=== PATIENT | female | born 1965 | race Caucasian/White ===

== ENCOUNTER 2016-12-01 22:00 | Emergency (ER) | payer MEDICARE, MEDICAID ==
--- NOTE | 2016-12-01 22:47 | EDM.PDOC ---
ED HPI GENERAL MEDICAL PROBLEM - General Chief Complaint: Eye Problems Stated Complaint: LEFT EYE PAIN Time Seen by Provider: 12/01/16 22:00 - History of Present Illness INITIAL COMMENTS - FREE TEXT/NARRATIVE: 51-year-old female presents emergency room with some left eye irritation. Patient denies any trauma other than she may have scratched her eye while wiping it. This morning she noticed increased discharge from her eye. The discharge is mostly watery. She denies any eye pain no significant change in vision. She's had a runny nose for the last several days. ED ROS GENERAL - Review of Systems Review Of Systems: See Below Constitutional: Reports: No Symptoms HEENT: Reports: Glasses, Rhinitis (She has had a runny nose). Denies: Dental Pain, Ear Pain, Sinus Problem Respiratory: Reports: No Symptoms Cardiovascular: Reports: No Symptoms GI/Abdominal: Reports: No Symptoms ED EXAM GENERAL W FULL EYE - Physical Exam Exam: See Below Exam Limited By: No Limitations General Appearance: Alert, No Apparent Distress Eye Exam: Bilateral Eye: Other (Palpation of the globes is nontender) Visual Acuity (R) 20/: 40 Visual Acuity (L) 20/: 40 With Correction: Yes IOP Measure with (Equipment): Other (Technical difficulties with the equipment) Eyelids: Bilateral: Other (Small amount of debris noted on the left eyelashes but this is very subtle) Conjunctiva & Sclera: Bilateral: Normal Appearance Cornea Exam: Bilateral: Normal Appearance Extraocular Movements: Bilateral: Intact Pupils: Normal Accommodation Anterior Chamber: Bilateral: Normal Appearance Posterior Chamber: Bilateral: Normal Funduscopic Ears: Normal External Exam, Normal Canal, Hearing Grossly Normal, Normal TMs Nose: Normal Inspection, Normal Mucosa, No Blood Throat/Mouth: Normal Inspection, Normal Lips, Normal Teeth, Normal Gums, Normal Oropharynx, Normal Voice, No Airway Compromise Head: Atraumatic, Normocephalic Neck: Normal Inspection, Supple, Non-Tender, Full Range of Motion Respiratory/Chest: No Respiratory Distress, Lungs Clear, Normal Breath Sounds Cardiovascular: Regular Rate, Rhythm, No Edema, No Murmur Course - Re-Assessments/Exams Free Text/Narrative Re-Assessment/Exam: 12/02/16 01:12 Her exam is essentially unremarkable for seen do not reveal any uptake no corneal abrasions or lacerations no foreign bodies identified no conjunctival reaction injection or inflammation. Patient be treated with warm compresses and using gentle shampoo techniques to keep her eyes clean. The patient agrees to follow-up with her eye doctor tomorrow for recheck. Departure - Departure Time of Disposition: 21:40 Disposition: Home, Self-Care 01 Clinical Impression: Blepharitis of eyelid of left eye - Discharge Information Referrals: PCP,Unobtain [Primary Care Provider] - Forms: ED Department Discharge Additional Instructions: Patient was given and written discharge instructions she will follow-up with her eye doctor in the morning
== END 2016-12-01 23:48 | disposition home or self-care (01) ==
LOC: JD.ED 22:00
DX: H01.006 Unspecified blepharitis left eye, unspecified eyelid (principal)
CPT/HCPCS: 99282; 99283

== ENCOUNTER → 2018-07-07 | Day surgery (SDC) | payer MEDICARE, MEDICAID ==
[~2018-07-07] MED LIST: Lactated Ringers 1,000 ML IV SCH; Lidocaine 1%/Sod Bicarbonate in NS 8.4% 1 ML Syringe IDERM PRN; Propofol 200 MG/20 ML SDV ONE; Sodium Chloride 0.9% 10 ML Syringe FLUSH PRN
== END ==
LOC: JD.SDS 08:14
PROVIDERS: ATTEND Surgery
DX: Z12.11 Encounter for screening for malignant neoplasm of colon (principal); E03.9 Hypothyroidism, unspecified; M19.90 Unspecified osteoarthritis, unspecified site; Z88.6 Allergy status to analgesic agent; Z53.8 Procedure and treatment not carried out for other reasons; Z87.891 Personal history of nicotine dependence
CPT/HCPCS: J2704

== ENCOUNTER 2018-10-26 08:58 | Day surgery (SDC) | payer MEDICARE, MEDICAID ==
[~2018-10-26 08:58] MED LIST changes: +Lidocaine 1% 6 ML ONE; +fentaNYL 100 MCG/2 ML SDV ONE
--- NOTE | 2018-10-26 09:44 | PCM.PREANE ---
Preanesthetic Assessment - Procedure Proposed Procedure: colonoscopy - Anesthesia/Transfusion/Family Hx Anesthesia History: Prior Anesthesia Without Reaction Family History of Anesthesia Reaction: No Transfusion History: No Prior Transfusion(s) - Review of Systems General: No Symptoms, Chills (1 week) Pulmonary: No Symptoms Cardiovascular: No Symptoms Gastrointestinal: Abdominal Pain (once in a while- crampy) Neurological: Other (downs) Other: Reports: Thyroid Problems, Depression - Physical Assessment NPO Status Date: 10/25/18 NPO Status Time: 23:00 Vital Signs: 98% 17 98.4 75 139/78 Height: 4 ft 9 in Weight: 77 kg ASA Class: 2 Mental Status: Alert & Oriented x3 (downs) Airway Class: Mallampati = 2 Dentition: Reports: Missing Tooth/Teeth Thyro-Mental Finger Breadths: 3 Mouth Opening Finger Breadths: 3 ROM/Head Extension: Full Lungs: Clear to Auscultation, Normal Respiratory Effort Cardiovascular: Regular Rate, Regular Rhythm, Murmurs - Allergies Allergies/Adverse Reactions: Allergies Allergy/AdvReac Type Severity Reaction Status Date / Time celecoxib [From Celebrex] Allergy Other Verified 10/25/18 12:51 - Blood Blood Available: No - Acknowledgements Anesthesia Type Planned: MAC Pt an Appropriate Candidate for the Planned Anesthesia: Yes Alternatives and Risks of Anesthesia Discussed w Pt/Guardian: Yes Pt/Guardian Understands and Agrees with Anesthesia Plan: Yes PreAnesthesia Questionnaire HEENT History: Reports: Allergic Rhinitis, Cataract, Hard of Hearing, Sinusitis , Other (See Below) Other HEENT History: STREP PHARYNGITIS, DENTAL ABCESS, WEARS GLASSES Cardiovascular History: Reports: None Respiratory History: Reports: Sleep Apnea (cpap) Gastrointestinal History: Reports: GERD Genitourinary History: Reports: Other (See Below) Other Genitourinary History: URINARY SYMPTOMS CONTRACT IMPLEMENTATION ANALYST History: Reports: None Musculoskeletal History: Reports: Arthritis Neurological History: Reports: Other (See Below) Other Neuro History: DIZZINESS, HYPERSOMNIA Psychiatric History: Reports: Developmental Delay Endocrine/Metabolic History: Reports: Hypothyroidism, Obesity/BMI 30+ Hematologic History: Reports: None Immunologic History: Reports: None Oncologic (Cancer) History: Reports: None Dermatologic History: Reports: Cellulitis, Eczema - Past Surgical History Head Surgeries/Procedures: Reports: None HEENT Surgical History: Reports: Cataract Surgery Cardiovascular Surgical History: Reports: None Respiratory Surgical History: Reports: None GI Surgical History: Reports: Appendectomy Female Surgical History: Reports: None Male Surgical History: Reports: None Endocrine Surgical History: Reports: None Neurological Surgical History: Reports: None Musculoskeletal Surgical History: Reports: Carpal Tunnel Oncologic Surgical History: Reports: None Dermatological Surgical History: Reports: None - SUBSTANCE USE Smoking Status *Q: Former Smoker Tobacco Use Within Last Twelve Months: No Second Hand Smoke Exposure: No Days Per Week of Alcohol Use: 1 (seldom) Recreational Drug Use History: No - HOME MEDS Home Medications: Home Meds Acetaminophen [Tylenol Arthritis] 650 mg PO DAILY 07/06/18 [History] Ascorbate Calcium [Vitamin C] 500 mg PO DAILY 07/06/18 [History] Ca Carbonate/Vitamin D3/Vit K [Calcium + D Soft Chewable Tab] 1 tab PO DAILY [History] Ethinyl Estradiol/Drospirenone [Ocella 3 MG-0.03 MG] 1 tab PO DAILY 07/06/18 [ History] Fluticasone Propionate [Flonase] 1 dose NASBOTH DAILY 07/06/18 [History] Levothyroxine 125 mcg PO DAILY 07/06/18 [History] Nabumetone 750 mg PO BID 07/06/18 [History] Omeprazole Magnesium [Prilosec Otc] 20 mg PO DAILY 07/06/18 [History] Pyridoxine HCl (Vitamin B6) [Vitamin B-6] 50 mg PO DAILY 07/06/18 [History] Sertraline HCl [Zoloft] 100 mg PO DAILY 07/06/18 [History] Triamcinolone Acetonide [Triamcinolone Acetonide 0.1% Crm] 1 dose TOP BID [History] - CURRENT (IN HOUSE) MEDS Current Meds: Current Medications Lactated Ringer's (Ringers, Lactated) 1,000 mls @ 125 mls/hr IV ASDIRECTED CARMINE Stop: 10/26/18 23:00 Lidocaine/Sodium Bicarbonate (Buffered Lidocaine 1% In Ns 8.4%) 0.25 ml IDERM ONETIME PRN PRN Reason: Prior to IV Start Stop: 10/26/18 18:00 Sodium Chloride (Saline Flush) 10 ml FLUSH ASDIRECTED PRN PRN Reason: Keep Vein Open Stop: 10/26/18 18:00 Discontinued Medications Fentanyl (Sublimaze) Confirm Administered Dose 100 mcg .ROUTE .STK-MED ONE Stop: 10/26/18 07:24 Lidocaine HCl (Xylocaine-Mpf 1%) Confirm Administered Dose 6 mls @ as directed .ROUTE .STK-MED ONE Stop: 10/26/18 07:24 Propofol (Diprivan 20 Ml) Confirm Administered Dose 200 mg .ROUTE .STK-MED ONE Stop: 10/26/18 07:24
[2018-10-26] MEDS ORDERED: Lactated Ringers 1,000 ML ONE (11:04)
--- NOTE | 2018-10-26 11:39 | PCM48HPAN ---
Post Anesthesia Note - EVALUATION WITHIN 48HRS OF ANESTHETIC Vital Signs in Normal Range: Yes Patient Participated in Evaluation: Yes Respiratory Function Stable: Yes Airway Patent: Yes Cardiovascular Function Stable: Yes Hydration Status Stable: Yes Pain Control Satisfactory: Yes Nausea and Vomiting Control Satisfactory: Yes Mental Status Recovered: Yes Vital Signs: Last Vital Signs Temp 36.5 C 10/26/18 11:30 Pulse 71 10/26/18 11:30 Resp 12 10/26/18 11:30 BP 89/73 L 10/26/18 11:30 Pulse Ox 95 10/26/18 11:30
--- NOTE | 2018-10-26 11:59 | OR ---
DATE OF OPERATION: 10/26/2018 SURGEON: Steve Lazaro MD PREOPERATIVE DIAGNOSIS: Colorectal cancer screening. POSTOPERATIVE DIAGNOSIS: Colorectal cancer screening. OPERATION PERFORMED: Screening colonoscopy. ANESTHESIA: MAC. FINDINGS: She had a normal colonoscopy and an excellent bowel prep. No polyps. No diverticulosis. PATHOLOGY: None. ESTIMATED BLOOD LOSS: None. DISPOSITION: Stable at the end of the procedure. INDICATION: The patient is a 52-year-old female referred for colorectal cancer screening. She was offered a screening colonoscopy per the standard of care. She was fully informed of the major risks, benefits, and alternatives. The risks include, but are not limited to perforation of the colon, bleeding, the risks of anesthesia, and the possibility of further surgery. She gave informed consent of what was done. DESCRIPTION OF PROCEDURE: The patient was brought to the gastro suite and placed in the left lateral decubitus position. She was given monitored anesthesia. A digital rectal exam was performed. This was unremarkable. With copious lubrication, I introduced the colonoscope into the rectum. I advanced the scope keeping the lumen in view at all times. I reached the cecum and documented the cecum photographically. I slowly investigated the mucosa of the colon from the cecum back to the anus in an exam lasting 6 minutes. A thorough careful examination failed to demonstrate polyps. She had no diverticulosis. She had an excellent bowel prep. At the end of the procedure, the scope was withdrawn. Air was evacuated on the way up. PLAN: She will need another colonoscopy in 10 years in 2028. MMECHO /[id number]
== END 2018-10-26 12:15 | disposition home or self-care (01) ==
LOC: JD.SDS 08:58
PROVIDERS: ATTEND Surgery
DX: Z12.11 Encounter for screening for malignant neoplasm of colon (principal); K21.9 Gastro-esophageal reflux disease without esophagitis; E03.9 Hypothyroidism, unspecified; F32.9 Major depressive disorder, single episode, unspecified; E66.9 Obesity, unspecified; G47.33 Obstructive sleep apnea (adult) (pediatric); M19.90 Unspecified osteoarthritis, unspecified site; Z88.8 Allergy status to other drugs, medicaments and biological substances; Z79.899 Other long term (current) drug therapy; Z87.891 Personal history of nicotine dependence; Z99.89 Dependence on other enabling machines and devices; Z68.37 Body mass index [BMI] 37.0-37.9, adult
CPT/HCPCS: 45378; 93005; J2001; J2704; J3010; J7120; 00812

== ENCOUNTER 2021-09-09 07:30 | Inpatient (IN) | payer MEDICARE, MEDICAID ==
[~2021-09-09 07:30] MED LIST changes: -Lidocaine 1% 6 ML ONE; -Propofol 200 MG/20 ML SDV ONE; -fentaNYL 100 MCG/2 ML SDV ONE
[2021-09-09] MEDS ORDERED: Ondansetron 4 MG/2 ML SDV ONE (07:47)
[2021-09-09] MEDS ORDERED: ceFAZolin 2 GM Vial ONE (07:47)
[2021-09-09] MEDS ORDERED: Dexamethasone 4 MG/ML 5 ML MDV ONE (07:47)
[2021-09-09] MEDS ORDERED: Rocuronium 50 MG/5 ML Vial ONE (07:47)
[2021-09-09] MEDS ORDERED: Propofol 200 MG/20 ML SDV ONE (07:47)
[2021-09-09] MEDS ORDERED: Lidocaine 1% 4 ML ONE (07:47)
[2021-09-09] MEDS ORDERED: fentaNYL 100 MCG/2 ML SDV ONE ×2 (07:47→09:04)
[2021-09-09] MEDS ORDERED: Midazolam 1 MG/ML 2 ML SDV ONE (08:10)
[2021-09-09] MEDS ORDERED: EPINEPHrine 1 MG/ML SDV ONE (08:12)
[2021-09-09] MEDS ORDERED: Ropivacaine 0.5% 5 MG/ML 30 ML SDV ONE (08:12)
[2021-09-09] MEDS ORDERED: Vancomycin 1 GM SDV ONE ×2 (08:45→11:14)
[2021-09-09] MEDS ORDERED: ePHEDrine 50 MG/ML SDV ONE (10:13)
[2021-09-09] MEDS ORDERED: Neostigmine Methylsulfate 10 MG/10 ML MDV ONE (11:24)
[2021-09-09] MEDS ORDERED: Acetaminophen/HYDROcodone 325-5 MG Tab PO SCH (12:02)
[2021-09-09] MEDS ORDERED: fentaNYL 100 MCG/2 ML SDV IVPUSH PRN ×2 (12:08→12:10)
[2021-09-09] MEDS ORDERED: Ondansetron 4 MG/2 ML SDV IVPUSH PRN (12:08)
[2021-09-09] MEDS ORDERED: HYDROmorphone 0.5 MG/0.5 ML Syringe IVPUSH PRN (12:08)
[2021-09-09] MEDS: Acetaminophen/HYDROcodone 325-10 MG Tab PO PRN (17:02)
[2021-09-10] MEDS: Acetaminophen/HYDROcodone 325-10 MG Tab PO PRN (04:51)
[2021-09-10] MEDS: Sodium Chloride 0.9% 10 ML Syringe FLUSH SCH (09:34)
[2021-09-10] MEDS: Acetaminophen 325 MG Tab PO PRN ×2 (10:02→15:21)
[2021-09-10] MEDS ORDERED: Acetaminophen/HYDROcodone 325-5 MG Tab PO PRN (12:33)
[2021-09-10] MEDS ORDERED: Sennosides 8.6 MG Tab PO PRN (12:34)
[2021-09-10] MEDS ORDERED: Naloxone 0.4 MG/ML SDV IVPUSH PRN (12:34)
[2021-09-10] MEDS ORDERED: Docusate Sodium 100 MG Cap PO PRN (12:34)
[2021-09-10] MEDS ORDERED: Bisacodyl 5 MG Tab PO PRN (12:34)
[2021-09-10] MEDS ORDERED: Magnesium Hydroxide 400 MG/5 ML Susp 30 ML Cup PO PRN (12:34)
[2021-09-10] MEDS ORDERED: Ondansetron 4 MG/2 ML SDV IVPUSH PRN (12:34)
[2021-09-10] MEDS: Sertraline 50 MG Tab PO SCH (17:58)
[2021-09-10] MEDS: Aspirin 325 MG Tab.EC PO SCH (17:58)
[2021-09-10] MEDS: Acetaminophen/HYDROcodone 325-5 MG Tab PO PRN (21:06)
[2021-09-11] MEDS ORDERED: Levothyroxine 112 MCG Tab PO SCH (06:00)
[2021-09-11] MEDS ORDERED: Levothyroxine 25 MCG Tab PO SCH (06:00)
[2021-09-11] MEDS: Aspirin 325 MG Tab.EC PO SCH (08:07)
[2021-09-11] MEDS: Sertraline 50 MG Tab PO SCH (08:07)
[2021-09-11] MEDS: Acetaminophen/HYDROcodone 325-5 MG Tab PO PRN (09:57)
[2021-09-11] MEDS: Acetaminophen 325 MG Tab PO PRN (13:57)
== END 2021-09-11 15:17 | disposition home or self-care (01) | DRG 483 ==
LOC: JD.SDS 07:30 → JD.MS 16:26 → JD.SDS 09-10 13:06
PROVIDERS: ADMIT Orthopaedic Surgery; ATTEND Orthopaedic Surgery
PROC: 0RRJ00Z Replacement of Right Shoulder Joint with Reverse Ball and Socket Synthetic Substitute, Open Approach (ICD-10-PCS; principal; 2021-09-10)
DX: M19.011 Primary osteoarthritis, right shoulder (principal); H91.90 Unspecified hearing loss, unspecified ear; J30.9 Allergic rhinitis, unspecified; G47.10 Hypersomnia, unspecified; H54.7 Unspecified visual loss; G47.30 Sleep apnea, unspecified; K21.9 Gastro-esophageal reflux disease without esophagitis; M06.9 Rheumatoid arthritis, unspecified; R62.50 Unspecified lack of expected normal physiological development in childhood; E03.9 Hypothyroidism, unspecified; E66.9 Obesity, unspecified; M48.02 Spinal stenosis, cervical region; R09.02 Hypoxemia; Z88.1 Allergy status to other antibiotic agents; Z91.040 Latex allergy status; Z88.6 Allergy status to analgesic agent; Z79.890 Hormone replacement therapy; Z79.82 Long term (current) use of aspirin; Z79.899 Other long term (current) drug therapy; Z87.440 Personal history of urinary (tract) infections; Z98.49 Cataract extraction status, unspecified eye; Z90.49 Acquired absence of other specified parts of digestive tract; Z95.2 Presence of prosthetic heart valve; I10 Essential (primary) hypertension; Q90.9 Down syndrome, unspecified; Z68.35 Body mass index [BMI] 35.0-35.9, adult
CPT/HCPCS: 01638; 36415; 64415; 73020-26-RT; 73020-RT; 76000; 76000-26; 80048; 85025; 97112-GP; 97116-GP; 97161-GP; 97166-GO; 97530-GO; 97530-GP; 97535-GO; 99221; A9270-GY; C1713; C1769; C1776; J0171; J0690; J1100; J1170; J2250; J2405; J2704; J2710; J2795; J3010; J3370; J7120

== ENCOUNTER 2024-09-11 07:52 | Emergency (ER) | payer MEDICARE, MEDICAID ==
[2024-09-11 08:57] LABS: BASOPHILS ABSOLUTE AUTO 0.0 K/mm3 (0.0-0.2); BASOPHILS PERCENT AUTO 0.5 % (0.0-1.0); EOSINOPHILS ABSOLUTE AUTO 1.4 K/mm3 (0.0-0.4); EOSINOPHILS PERCENT AUTO 18.8 % (0.0-6.0); IMMATURE GRAN ABSOLUTE AUTO 0.01 K/mm3 (0.00-0.05); IMMATURE GRAN PERCENT AUTO 0.1 % (0.0-0.4); LYMPHOCYTES ABSOLUTE AUTO 1.8 K/mm3 (1.0-4.8); LYMPHOCYTES PERCENT AUTO 24.1 % (24.0-44.0); MEAN PLATELET VOLUME 9.2 fl (9.4-12.3); MONOCYTES ABSOLUTE AUTO 0.5 K/mm3 (0.0-0.8); MONOCYTES PERCENT AUTO 6.3 % (0.0-8.0); NEUTROPHILS ABSOLUTE AUTO 3.8 K/mm3 (1.8-7.7); NEUTROPHILS PERCENT AUTO 50.2 % (41.0-71.0); NRBC ABSOLUTE 0.00 (0.00-0.02); NRBC PERCENT 0.0 % (0.0-0.2); PLATELET COUNT,PLT 181 K/mm3 (150-400); RED BLOOD CELL COUNT 4.23 M/mm3 (4.10-5.30); WHITE BLOOD CELL COUNT,WBC 7.64 K/mm3 (3.9-11.3)
[2024-09-11 09:10] LABS: APPEARANCE,URINE CLEAR (Clear); GLUCOSE,URINE NEGATIVE (Negative); OCCULT BLOOD,URINE NEGATIVE (Negative)
[2024-09-11 09:23] LABS: A/G RATIO 1.1 (1-2); ALANINE AMINOTRANSFERASE,ALT 14 U/L (14-59); ASPARTATE AMNIOTRANSFERASE,AST 16 U/L (15-37); BILIRUBIN TOTAL 0.4 mg/dL (0.2-1.0); BLOOD UREA NITROGEN,BUN 19 mg/dL (7-18); CARBON DIOXIDE,CO2 31 mEq/L (21-32); CHLORIDE,CL 105 mEq/L (98-107); CREATINE KINASE,CK 42 U/L (26-192); CREATININE 0.6 mg/dL (0.55-1.02); ESTIMATED GFR 105 mL/min (>60); GLUCOSE RANDOM 88 mg/dL (70-99); POTASSIUM,K 3.9 mEq/L (3.5-5.1); PROTEIN TOTAL,TP 6.4 g/dl (6.4-8.2); SODIUM,NA 141 mEq/L (136-145); TROPONIN I HIGH SENSITIVITY 8 pg/mL (<=51)
[2024-09-11] MEDS: levETIRAcetam 500 MG/5 ML SDV IVPUSH ONE (10:59)
[2024-09-11] MEDS: Sodium Chloride 0.9% 10 ML Syringe FLUSH PRN (11:01)
== END 2024-09-11 11:20 | disposition home or self-care (01) ==
LOC: JD.ED 07:52
DX: R56.9 Unspecified convulsions (principal); M19.90 Unspecified osteoarthritis, unspecified site; E66.9 Obesity, unspecified; E03.9 Hypothyroidism, unspecified; Z88.8 Allergy status to other drugs, medicaments and biological substances; Z79.82 Long term (current) use of aspirin; Z79.890 Hormone replacement therapy; Z79.899 Other long term (current) drug therapy; Z90.49 Acquired absence of other specified parts of digestive tract
CPT/HCPCS: 36415; 70450; 71045; 72125; 73060; 80053; 81003; 82550; 83735; 84484; 85025; 93005; 96374; 99285; J1953